=== PATIENT | male | born 2005 | race Caucasian/White ===

== ENCOUNTER 2023-07-27 22:45 | Emergency (ER) | payer OTHER, BC, SELFPAY ==
[2023-07-27 22:49] VITALS: BP 173/94; PULSE 100; RESP 16; TEMP 36.7; O2SAT 97; BMI 19.4
--- NOTE | 2023-07-27 23:07 | ED.SKABFB1 ---
HPI - Skin/Abscess/Foreign Bdy General Chief complaint: Skin/Abscess/Foreign Body Stated complaint: Dog Bite Time Seen by Provider: 07/27/23 22:58 Source: patient and family Mode of arrival: walk-in Limitations: no limitations History of Present Illness HPI narrative: This 17-year-old male who is right-hand dominant presents for evaluation after he was bit by his girlfriend's dog on the left distal forearm and hand. He has a 0.5 cm puncture wound to the left distal anterior forearm and some small puncture wounds on the dorsal aspect of the left hand. The animal's immunizations including rabies are up to date. The patient does not know the date of his last tetanus shot. No additional injuries or complaints. Related Data Allergies Allergy/AdvReac Type Severity Reaction Status Date / Time No Known Drug Allergies Allergy Verified 07/27/23 22:51 Review of Systems ROS Status of ROS 10 or more systems reviewed and unremarkable except as noted in history and below PFS PFS Social History Smoking status: Current some day smoker Exam Narrative Exam Narrative: Nurses note and vital signs reviewed and patient is not hypoxic. General: The patient appears well and in no apparent distress. Patient is resting comfortably on cart. Skin: Warm, dry, no pallor noted. There is no rash noted. See musculoskeletal section Head: Normocephalic, atraumatic Eye: Normal conjunctiva, no drainage, EOMI. PERRL Cardiovascular: Regular Rate and Rhythm Respiratory: Patient is in no distress, no accessory muscle use, lungs are clear to auscultation, no wheezing, rales or rhonchi Musculoskeletal: As a 0.5 cm puncture wound to the volar aspect of the left distal forearm/wrist area. There are several superficial bite bernardo/puncture wounds to the dorsal aspect of the left hand. There is no active bleeding or bruising. There is no bony tenderness. Patient is able to approximate thumb and all fingers. Capillary refill in the hand is normal. Neurological: A&O x4, normal speech Psychiatric: Cooperative Constitutional Vital Signs, click to edit/add: Last Vital Signs Temp 98.0 F 07/27/23 22:49 Pulse 100 H 07/27/23 22:49 Resp 16 07/27/23 22:49 BP 173/94 H 07/27/23 22:49 Pulse Ox 97 11/22/23 22:49 O2 Del Method Room Air 11/22/23 22:49 Course Vital Signs Vital signs: Vital Signs Temperature 98.0 F 07/27/23 22:49 Pulse Rate 100 H 07/27/23 22:49 Respiratory Rate 16 07/27/23 22:49 Blood Pressure 173/94 H 07/27/23 22:49 Pulse Oximetry 97 07/27/23 22:49 Oxygen Delivery Method Room Air 07/27/23 22:49 Temperature 98.0 F 07/27/23 22:49 Pulse Rate 100 H 07/27/23 22:49 Respiratory Rate 16 07/27/23 22:49 Blood Pressure 173/94 H 07/27/23 22:49 Pulse Oximetry 97 07/27/23 22:49 Oxygen Delivery Method Room Air 07/27/23 22:49 MDM - Skin/Abscess/Foreign Bdy MDM Narrative Medical decision making narrative: This 17-year-old male presents for evaluation after he was bit by his girlfriend's dog. The dog and another dog were fighting and he attempted to break up a dog fight and was bit in the left hand. He is right-hand dominant. He has a small puncture wound to the volar aspect of the left distal forearm and several very superficial puncture wounds to the left hand. He is neurovascularly intact. His tetanus was updated. His hand was soaked in warm Betadine solution and dried and a sterile dry dressing was placed over the puncture site. He was medicated in the emergency department with Augmentin and given to Augmentin for home use tomorrow as it is Thanksgiving and pharmacies are not open. He will be discharged home with a prescription for Augmentin to fill the day after tomorrow. I encouraged him to soak his hand and irrigate the puncture wound sites and avoid covering them with antibiotic ointment. Discharge Plan Discharge Chief Complaint: Skin/Abscess/Foreign Body Clinical Impression: Dog bite Patient Disposition: Home, Self-Care Time of Disposition Decision: 23:17 Condition: Good Instructions: Animal Bite (ED) Stand Alone Forms: Portal Instructions Referrals: Amna Swan MD [Primary Care Provider] - 1 week
[2023-07-27] MEDS: ADACEL DIPH,PERTUSS(ACELL),TET VAC/PF 0.5 ML ADULT SYRINGE IM (23:33)
[2023-07-27] MEDS: AMOXICILLIN/POTASSIUM CLAV 1 TAB TABLET PO ×3 (23:33)
[2023-07-27 23:39] VITALS: BP 156/86
== END 2023-07-27 23:41 | disposition home or self-care (01) ==
PROVIDERS: Emergency Provider Emergency Medicine; PCP Family Medicine
DX: S51.852A Open bite of left forearm, initial encounter (principal); S60.572A Other superficial bite of hand of left hand, initial encounter; W54.0XXA Bitten by dog, initial encounter; Z23 Encounter for immunization; F17.210 Nicotine dependence, cigarettes, uncomplicated
CPT/HCPCS: 90471; 90715; 99283